=== PATIENT | female | born 1950 | race Caucasian/White ===

== ENCOUNTER → 2022-03-06 | Outpatient (CLI) | payer SELFPAY | END | disposition home or self-care (01) | LOC: LAB SHORT 13:38 | DX: N39.0 Urinary tract infection, site not specified (principal) | CPT/HCPCS: 87077; 87086; 87186 ==

== ENCOUNTER 2023-02-11 17:52 | Emergency (ER) | payer MEDICARE ==
[~2023-02-11] VITALS: Ht 165.1 cm; Wt 63.5 kg
[2023-02-11 21:44] VITALS: BP 130/90
== END 2023-02-11 22:43 | disposition home or self-care (01) ==
LOC: ER 17:52
DX: J02.9 Acute pharyngitis, unspecified (principal); Z91.041 Radiographic dye allergy status
CPT/HCPCS: 70360; 99283-25